=== PATIENT | male | born 1970 | race Caucasian/White ===

== ENCOUNTER 2016-07-21 07:39 | Emergency (ER) | payer OTHER ==
[~2016-07-21] VITALS: Ht 182.9 cm; Wt 92.6 kg
[~2016-07-21 07:39] MED LIST: BACT800T5 PO; CLIN1CAP5 PO
[2016-07-21 07:41] VITALS: BP 114/83; PULSE 86; RESP 16; TEMP 97.6; O2SAT 98
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
== END 2016-07-21 09:13 | disposition home or self-care (01) ==
LOC: PHED 07:39
DX: F17.210 Nicotine dependence, cigarettes, uncomplicated (principal); F12.10 Cannabis abuse, uncomplicated
CPT/HCPCS: 73030; 99283

== ENCOUNTER 2017-12-20 09:19 | Emergency (ER) | payer SELFPAY ==
[2017-12-20 09:21] VITALS: BP 118/78; PULSE 84; RESP 16; TEMP 97.6; O2SAT 98
--- NOTE | 2017-12-20 10:11 | PD ---
HPI Chief Complaint: ENT Complaint Time Seen by Provider: 09:55 Travel History International Travel<30 days: No Contact w/Intl Traveler<30days: No Traveled to known affect area: No History of Present Illness HPI 47-year-old male here with right ear pain 1 week. No drainage from the ear. No fever chills. Symptom severity is moderate. No aggravating or alleviating factors. PFSH Past Medical History Heart Rhythm Problems: No Cardiac Catheterization: No High Cholesterol: No Congestive Heart Failure: No Diabetes: No Diminished Hearing: No Hypertension: No Integumentary: Yes (Psoriasis) Myocardial Infarction: No Tetanus Vaccination: < 5 Years Influenza Vaccination: No Past Surgical History Appendectomy: Yes Coronary Artery Bypass Graft: No Tonsillectomy: Yes Family History Family Myocardial Infarction: Yes (Father) Social History Alcohol Use: No Tobacco Use: Yes (1 PPD) Substance Use: Yes (Marijuana daily ) Allergies-Medications (Allergen,Severity, Reaction): Coded Allergies: diatrizoate meglumine (Verified Allergy, Severe, Hives, 12/20/17) gadobenic acid (Verified Allergy, Severe, Hives, 12/20/17) gadodiamide (Verified Allergy, Severe, Hives, 12/20/17) gadoteridol (Verified Allergy, Severe, Hives, 12/20/17) iodine (Verified Allergy, Severe, Hives, 12/20/17) iodixanol (Verified Allergy, Severe, Hives, 12/20/17) iohexol (Verified Allergy, Severe, Hives, 12/20/17) potassium iodide (Verified Allergy, Severe, Hives, 12/20/17) povidone-iodine (Verified Allergy, Severe, Hives, 12/20/17) sodium iodide (Verified Allergy, Severe, Hives, 12/20/17) sodium iodide (Verified Allergy, Severe, Hives, 12/20/17) Reported Meds & Prescriptions Reported Meds & Active Scripts Active No Active Prescriptions or Reported Medications Review of Systems Except as stated in HPI: all other systems reviewed are Neg General / Constitutional: No: Fever HENT: Positive: Congestion, Earache Physical Exam Narrative GENERAL: Alert and well-appearing 39-year-old male SKIN: Warm and dry. HEAD: Normocephalic. EYES: No injection or drainage. ENT: Right TM erythema, bulging, loss of landmarks. No canal swelling or drainage. No mastoid tenderness. NECK: Supple CARDIOVASCULAR: Regular rate and rhythm RESPIRATORY: Breath sounds equal bilaterally. No accessory muscle use. GASTROINTESTINAL: nondistended. Data Data Last Documented VS Vital Signs Date Time Temp Pulse Resp B/P (MAP) Pulse Ox O2 Delivery O2 Flow Rate FiO2 12/20/17 09:25 14 12/20/17 09:21 97.6 84 118/78 (91) 98 MDM Medical Decision Making Medical Screen Exam Complete: Yes Emergency Medical Condition: Yes Differential Diagnosis Otitis media, otitis externa, URI Narrative Course 47-year-old male here with right-sided otitis media. Is nontoxic appearing. He will be treated with amoxicillin. Diagnosis Primary Impression: Otitis media Qualified Codes: H66.90 - Otitis media, unspecified, unspecified ear Referrals: Primary Care Physician Additional Instructions: Antibiotics as directed. Ibuprofen 800 mg every 6 hours as needed for pain. Scripts No Active Prescriptions or Reported Meds Disposition: 01 DISCHARGE HOME Condition: Stable Hortensia Alexander Dec 20, 2017 10:10
[2017-12-20] MEDS ORDERED: AMOX500T PO (10:12)
== END 2017-12-20 10:20 | disposition home or self-care (01) ==
LOC: PHEFT 09:19
DX: H66.91 Otitis media, unspecified, right ear (principal); R09.81 Nasal congestion; F17.200 Nicotine dependence, unspecified, uncomplicated; F12.90 Cannabis use, unspecified, uncomplicated; Z88.8 Allergy status to other drugs, medicaments and biological substances
CPT/HCPCS: 99283